=== PATIENT | male | born 1975 | race Caucasian/White ===

== ENCOUNTER 2019-06-09 23:18 | Emergency (ER) | payer OTHER ==
[2019-06-09] MEDS ORDERED: Amoxicillin/Clavulanate K 875-125 MG Tab PO ONE (23:19)
--- NOTE | 2019-06-09 23:44 | EDM.PDOC ---
ED HPI GENERAL MEDICAL PROBLEM - General Stated Complaint: COLD SORE THROAT Time Seen by Provider: 06/09/19 23:42 Source of Information: Reports: Patient History Limitations: Reports: No Limitations - History of Present Illness INITIAL COMMENTS - FREE TEXT/NARRATIVE: Head pressure x 2 days. Associated with sore that,cough and low grade fever. Insidious onset ,a few days ago. ED ROS GENERAL - Review of Systems Review Of Systems: ROS reveals no pertinent complaints other than HPI. ED EXAM, GENERAL - Physical Exam Exam: See Below Exam Limited By: No Limitations General Appearance: Alert, WD/WN Ears: Normal External Exam Ear Exam: Bilateral Ear: Auricle Normal, Canal Normal, TM normal Nose: Normal Inspection Throat/Mouth: Normal Inspection, Inflammation Head: Atraumatic, Sinus Tenderness Respiratory/Chest: No Respiratory Distress, Lungs Clear, No Accessory Muscle Use Cardiovascular: Normal Peripheral Pulses Departure - Departure Time of Disposition: 23:43 Disposition: Home, Self-Care 01 Condition: Good Clinical Impression: Sinusitis - Discharge Information Referrals: PCP,None [Primary Care Provider] - - Problem List & Annotations (1) Sinusitis SNOMED Code(s): 25612567 Code(s): J32.9 - CHRONIC SINUSITIS, UNSPECIFIED Status: Acute - Problem List Review Problem List Initiated/Reviewed/Updated: Yes - Assessment/Plan Plan: Augmentin 875 mg BID.
== END 2019-06-10 00:05 | disposition home or self-care (01) ==
LOC: FB.ED 23:18
DX: J32.9 Chronic sinusitis, unspecified (principal)
CPT/HCPCS: 99282; A9270

== ENCOUNTER 2019-12-19 20:27 | Emergency (ER) | payer OTHER ==
--- NOTE | 2019-12-19 21:08 | EDM.PDOC ---
ED HPI GENERAL MEDICAL PROBLEM - General Chief Complaint: General Stated Complaint: VOMITING AND DIARRHEA Time Seen by Provider: 12/19/19 20:47 Source of Information: Reports: Patient History Limitations: Reports: No Limitations - History of Present Illness INITIAL COMMENTS - FREE TEXT/NARRATIVE: 44-year-old male who reports 2 days ago began having vomiting and diarrhea and the symptoms were moderate to severe yesterday but today they have been less. He has had vomiting 2 today and diarrhea 4 or 5. He has felt fatigue and somewhat dizzy yesterday but that has improved today he has been able to take liquids today. He has not really been eating that well area has had normal urination without hematuria or dysuria. He thinks he may have had a fever with this and it has been subjective area he has had no sore throat or cough. He does feel improved today but still has malaise. He has some antinausea medication at home that he has been taking today with good results. He denies any pain at present. He rates his pain as a 0/10. There are no other associated signs or symptoms. There are no other modifying factors. 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 below) (Antinausea medication at home) - Related Data Allergies Allergy/AdvReac Type Severity Reaction Status Date / Time No Known Allergies Allergy Verified 12/19/19 22:29 Home Meds: Home Meds amLODIPine Besylate [Norvasc] 10 mg PO BEDTIME 12/19/19 [History] hydroCHLOROthiazide [Hydrochlorothiazide] 0 mg PO BEDTIME 12/19/19 [History] Past Medical History Cardiovascular History: Reports: Hypertension - Past Surgical History HEENT Surgical History: Reports: Tonsillectomy GI Surgical History: Reports: Appendectomy, Other (See Below) (Exploratory laparotomy for volvulus as a child) Musculoskeletal Surgical History: Reports: Other (See Below) Other Musculoskeletal Surgeries/Procedures:: States history of surgery on left hand. Social & Family History - Tobacco Use Smoking Status *Q: Former Smoker Used Tobacco, but Quit: Yes Month/Year Tobacco Last Used: 10/2019 - Alcohol Use Alcohol Use History: No Alcohol Use in Last Twelve Months: No Alcohol Use Comment: No alcohol use for the past 3 years. - Living Situation & Occupation Occupation: Employed (Works at [employer]) ED ROS GENERAL - Review of Systems Review Of Systems: See Below Constitutional: Reports: Fever (Subjective), Malaise, Decreased Appetite HEENT: Reports: No Symptoms Respiratory: Reports: No Symptoms Cardiovascular: Reports: No Symptoms GI/Abdominal: Reports: Diarrhea, Decreased Appetite, Nausea, Vomiting : Reports: No Symptoms Musculoskeletal: Reports: Other (Some body aches) Skin: Reports: No Symptoms Neurological: Reports: No Symptoms Hematologic/Lymphatic: Reports: No Symptoms Immunologic: Reports: No Symptoms ED EXAM, GENERAL - Physical Exam Exam: See Below Exam Limited By: No Limitations General Appearance: Alert, WD/WN, No Apparent Distress Eye Exam: Bilateral Eye: EOMI, Normal Inspection Ears: Normal External Exam, Hearing Grossly Normal Ear Exam: Bilateral Ear: Auricle Normal Nose: Normal Inspection, Normal Mucosa, No Blood Throat/Mouth: Normal Inspection, Normal Oropharynx, Normal Voice, No Airway Compromise, Other (Moist mucous membranes) Head: Atraumatic, Normocephalic Neck: Normal Inspection, Supple, Non-Tender, Full Range of Motion Respiratory/Chest: No Respiratory Distress, Lungs Clear, Normal Breath Sounds, No Accessory Muscle Use, Chest Non-Tender Cardiovascular: Normal Peripheral Pulses, Regular Rate, Rhythm, No Murmur Peripheral Pulses: 2+: Radial (L), Radial (R) GI/Abdominal: Normal Bowel Sounds, Soft, Non-Tender, No Mass Back Exam: Normal Inspection Extremities: Normal Inspection, Normal Range of Motion, Non-Tender, No Pedal Edema, Normal Capillary Refill Neurological: Alert, Oriented, CN II-XII Intact, Normal Cognition, No Motor/ Sensory Deficits Skin Exam: Warm, Dry, Intact, Normal Color, No Rash Course - Vital Signs Last Recorded V/S: Last Vital Signs Temp 36.6 C 12/19/19 21:45 Pulse 84 12/19/19 21:45 Resp 17 12/19/19 21:45 BP 143/83 H 12/19/19 21:45 Pulse Ox 99 12/19/19 21:45 - Re-Assessments/Exams Free Text/Narrative Re-Assessment/Exam: 12/19/19 21:00: Patient is awake, alert and appropriate. He appears nontoxic and does not appear to be dehydrated. His vomiting and diarrhea seem to be resolving and he has antiemetic at home. I do not feel that he needs IV fluids at this time and I do not think that he needs laboratory testing. He should go home and rest. He should continue to drink plenty of fluids and use the antiemetic that he has at home as needed. No work until 12/21/2019. Departure - Departure Time of Disposition: 21:10 Disposition: Home, Self-Care 01 Condition: Good Clinical Impression: Vomiting and diarrhea - Discharge Information Instructions: Nausea and Vomiting, Adult, [id number], Diarrhea, Adult, Easy- to-Read Referrals: PCP,None [Primary Care Provider] - Forms: ED Department Discharge, ED Return to Work/School Form Additional Instructions: Your exam is reassuring. You should rest. You should drink plenty of fluids. Take the medicine that you have at home as needed. You may also take Imodium 1 capsule after each loose stool up to 5 capsules a 24-hour period as needed for diarrhea. No work until 12/21/2019. Back to the emergency department for unrelenting vomiting, abdominal pain, high fever or any other concerning sign or symptom. Sepsis Event Note - Evaluation Sepsis Screening Result: No Definite Risk - Focused Exam Vital Signs: Vital Signs Temp Pulse Resp BP Pulse Ox 12/19/19 21:45 36.6 C 84 17 143/83 H 99 12/19/19 20:27 36.3 C 71 17 124/82 100 Date Exam was Performed: 12/20/19 Time Exam was Performed: 01:42
== END 2019-12-19 21:54 | disposition home or self-care (01) ==
LOC: FB.ED 20:27
CPT/HCPCS: 99283

== ENCOUNTER 2020-01-05 23:14 | Emergency (ER) | payer OTHER ==
[2020-01-05] MEDS ORDERED: Meclizine 25 MG Tab PO ONE (23:27)
[2020-01-05] MEDS ORDERED: Ondansetron 4 MG Tab.DIS PO ONE (23:28)
--- NOTE | 2020-01-05 23:51 | EDM.PDOC ---
ED HPI GENERAL MEDICAL PROBLEM - General Chief Complaint: General Stated Complaint: Dizzy Time Seen by Provider: 01/05/20 23:20 Source of Information: Reports: Patient History Limitations: Reports: No Limitations - History of Present Illness INITIAL COMMENTS - FREE TEXT/NARRATIVE: Patient presented to the ED because of URI s/s x 1 day followed by onset of vertigo . He feels spinning around the room with associated nausea but no vomiting. There is tinnitus in both ears which according to him is chronic. 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 - Related Data Allergies Allergy/AdvReac Type Severity Reaction Status Date / Time cat dander Allergy Unstated Verified 01/06/20 02:28 dog dander Allergy Unstated Verified 01/06/20 02:28 Home Meds: Home Meds amLODIPine Besylate [Norvasc] 10 mg PO BEDTIME 12/19/19 [History] hydroCHLOROthiazide [Hydrochlorothiazide] 0 mg PO BEDTIME 12/19/19 [History] Past Medical History Cardiovascular History: Reports: Hypertension Other Cardiovascular History: States has been on BP medication in the past. - Past Surgical History HEENT Surgical History: Reports: Tonsillectomy GI Surgical History: Reports: Appendectomy, Other (See Below) Other GI Surgeries/Procedures: States he had abdominal surgery around age 1. Musculoskeletal Surgical History: Reports: Other (See Below) Other Musculoskeletal Surgeries/Procedures:: States history of surgery on left hand. Social & Family History - Family History Endocrine/Metabolic: Reports: Other (See Below) Other Endocrine/Metabolic Family History: Patient states both mother and father have diabetes. - Living Situation & Occupation Occupation: Employed (Works at [employer]) ED ROS GENERAL - Review of Systems Review Of Systems: See Below Constitutional: Reports: No Symptoms HEENT: Reports: No Symptoms Respiratory: Reports: No Symptoms Cardiovascular: Reports: No Symptoms Endocrine: Reports: No Symptoms GI/Abdominal: Reports: Nausea. Denies: Vomiting : Reports: No Symptoms Musculoskeletal: Reports: No Symptoms Skin: Reports: No Symptoms Neurological: Reports: Dizziness Psychiatric: Reports: No Symptoms Hematologic/Lymphatic: Reports: No Symptoms ED EXAM, GENERAL - Physical Exam Exam: See Below Exam Limited By: No Limitations General Appearance: Alert Ears: Normal External Exam, Normal Canal, Normal TMs Nose: Normal Inspection, Normal Mucosa, No Blood Throat/Mouth: Normal Inspection, Normal Lips, Normal Teeth, Normal Gums Head: Atraumatic, Normocephalic Neck: Normal Inspection, Supple, Non-Tender, Full Range of Motion Respiratory/Chest: No Respiratory Distress, Lungs Clear, Normal Breath Sounds Cardiovascular: Normal Peripheral Pulses, Regular Rate, Rhythm, No Edema, No Gallop, No JVD, No Murmur GI/Abdominal: Normal Bowel Sounds, Soft, Non-Tender, No Organomegaly Back Exam: Normal Inspection, Full Range of Motion Extremities: Normal Inspection, Normal Range of Motion Course - Vital Signs Text/Narrative:: Zofran ODT 4 mg Meclizine 50 mg po x1 Ativan 1 mg IM x1 Last Recorded V/S: Last Vital Signs Temp 36.4 C 01/05/20 23:15 Pulse 64 01/05/20 23:15 Resp 18 01/05/20 23:15 BP 144/90 H 01/05/20 23:15 Pulse Ox 100 01/05/20 23:15 - Orders/Labs/Meds Meds: Medications Discontinued Medications Generic Name Dose Route Start Last Admin Trade Name Lisa PRN Reason Stop Dose Admin Lorazepam 1 mg 01/05/20 23:53 01/05/20 23:58 Ativan IM 01/05/20 23:54 1 mg ONETIME ONE Administration Meclizine HCl 50 mg 01/05/20 23:27 01/05/20 23:44 Antivert PO 01/05/20 23:28 50 mg ONETIME ONE Administration Ondansetron HCl 4 mg 01/05/20 23:28 01/05/20 23:31 Zofran Odt PO 01/05/20 23:29 4 mg ONETIME ONE Administration Departure - Departure Time of Disposition: 00:15 Disposition: Home, Self-Care 01 Condition: Good Clinical Impression: URI (upper respiratory infection), BPV (benign positional vertigo) - Discharge Information Instructions: Benign Positional Vertigo Referrals: Elisabet Simpson NP [Primary Care Provider] - Forms: ED Department Discharge Additional Instructions: take the meclizine and the anti emetic that your doctor prescribed keep your appointment to be seen by the physical therapist tomorrow Sepsis Event Note - Evaluation Sepsis Screening Result: No Definite Risk - Focused Exam Vital Signs: Vital Signs Temp Pulse Resp BP Pulse Ox 01/05/20 23:15 36.4 C 64 18 144/90 H 100 Date Exam was Performed: 01/06/20 Time Exam was Performed: 07:40
[2020-01-05] MEDS ORDERED: LORazepam 2 MG/ML SDV IM ONE (23:53)
== END 2020-01-06 00:55 | disposition home or self-care (01) ==
LOC: FB.ED 23:14
DX: H81.10 Benign paroxysmal vertigo, unspecified ear (principal); J06.9 Acute upper respiratory infection, unspecified; Z91.09 Other allergy status, other than to drugs and biological substances; I10 Essential (primary) hypertension; Z79.899 Other long term (current) drug therapy
CPT/HCPCS: 96372; 99283; A9270; J2060

== ENCOUNTER 2020-08-15 18:01 | Emergency (ER) | payer OTHER ==
--- NOTE | 2020-08-15 18:58 | EDM.PDOC ---
ED HPI GENERAL MEDICAL PROBLEM - General Chief Complaint: Gastrointestinal Problem Stated Complaint: STOMACH, DIARRHEA Time Seen by Provider: 08/15/20 18:40 Source of Information: Reports: Patient History Limitations: Reports: No Limitations - History of Present Illness INITIAL COMMENTS - FREE TEXT/NARRATIVE: states he developed diarrhea early this am about 5-6 times , getting better since this evening . has no fever , has no vomiting though felt nauseated. Thinks he ate some food that did not agree with him , Unsure of COVID exposure. will not be able to go to work tonight - Related Data Allergies Allergy/AdvReac Type Severity Reaction Status Date / Time cat dander Allergy Unstated Verified 01/06/20 02:28 dog dander Allergy Unstated Verified 01/06/20 02:28 Home Meds: Home Meds amLODIPine Besylate [Norvasc] 10 mg PO BEDTIME 12/19/19 [History] hydroCHLOROthiazide [Hydrochlorothiazide] 0 mg PO BEDTIME 12/19/19 [History] Past Medical History Cardiovascular History: Reports: Hypertension Other Cardiovascular History: States has been on BP medication in the past. - Past Surgical History HEENT Surgical History: Reports: Tonsillectomy GI Surgical History: Reports: Appendectomy, Other (See Below) Other GI Surgeries/Procedures: States he had abdominal surgery around age 1. Musculoskeletal Surgical History: Reports: Other (See Below) Other Musculoskeletal Surgeries/Procedures:: States history of surgery on left hand. Social & Family History - Family History Endocrine/Metabolic: Reports: Other (See Below) Other Endocrine/Metabolic Family History: Patient states both mother and father have diabetes. - Living Situation & Occupation Occupation: Employed (Works at [employer]) ED ROS GENERAL - Review of Systems Review Of Systems: See Below Constitutional: Reports: No Symptoms HEENT: Reports: No Symptoms Respiratory: Reports: No Symptoms Cardiovascular: Reports: No Symptoms Endocrine: Reports: No Symptoms GI/Abdominal: Reports: Diarrhea, Decreased Appetite, Nausea. Denies: Abdominal Pain, Bloody Stool, Mucous in Stool, Vomiting : Reports: No Symptoms Musculoskeletal: Reports: No Symptoms Skin: Reports: No Symptoms Neurological: Reports: No Symptoms Psychiatric: Reports: No Symptoms Hematologic/Lymphatic: Reports: No Symptoms ED EXAM, GI/ABD - Physical Exam Exam: See Below Exam Limited By: No Limitations General Appearance: Alert, WD/WN, No Apparent Distress Eyes: Bilateral: EOMI Ears: Normal External Exam Nose: Normal Inspection Throat/Mouth: Normal Inspection, Normal Oropharynx Neck: Supple, Non-Tender Respiratory/Chest: Lungs Clear GI/Abdominal Exam: Normal Bowel Sounds, Soft, Non-Tender Back Exam: Full Range of Motion Extremities: Normal Inspection, Normal Range of Motion Neurological: Alert, Oriented, CN II-XII Intact Psychiatric: Normal Affect Departure - Departure Time of Disposition: 19:10 Disposition: Home, Self-Care 01 Clinical Impression: Gastroenteritis, Gastroenteritis - Discharge Information *PRESCRIPTION DRUG MONITORING PROGRAM REVIEWED*: Not Applicable *COPY OF PRESCRIPTION DRUG MONITORING REPORT IN PATIENT KELLE: Not Applicable Instructions: Viral Gastroenteritis, Adult, [id number], Diarrhea, Adult, [id number], Food Poisoning, [id number] Referrals: Elisabet Simpson NP [Primary Care Provider] - Forms: ED Department Discharge, ED Return to Work/School Form
== END 2020-08-15 19:20 | disposition home or self-care (01) ==
LOC: FB.ED 18:01
DX: K52.9 Noninfective gastroenteritis and colitis, unspecified (principal); I10 Essential (primary) hypertension; Z91.09 Other allergy status, other than to drugs and biological substances; Z79.899 Other long term (current) drug therapy; Z90.49 Acquired absence of other specified parts of digestive tract
CPT/HCPCS: 99283

== ENCOUNTER 2020-08-23 18:20 | Emergency (ER) | payer OTHER ==
[2020-08-23] MEDS ORDERED: Sodium Chloride 0.9% 10 ML Syringe FLUSH PRN (18:33)
[2020-08-23] MEDS ORDERED: Sodium Chloride 0.9% 1,000 ML IV ONE (18:38)
[2020-08-23] MEDS ORDERED: Sodium Chloride 0.9% 1,000 ML IV SCH (18:45)
[2020-08-23] MEDS ORDERED: Iopamidol 755 Mg/ML 100 ML Bottle IV ONE (19:09)
[2020-08-23] MEDS ORDERED: Morphine 4 MG/ML VIAL IVPUSH ONE (19:31)
[2020-08-23] MEDS ORDERED: Ondansetron 4 MG/2 ML SDV IVPUSH ONE (19:31)
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
[2020-08-23] MEDS: Diphtheria,Pertussis(Acell),Tetanus Vaccine 0.5 ML Syringe IM ONE ×2 (22:24→22:46)
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
--- NOTE | 2020-08-23 22:47 | CR ---
BILATERAL KNEES Frontal and lateral views of the knees were obtained 08/23/2020--no comparison. Mild hypertrophic degenerative changes are noted at the medial intercondylar spines and laterally off the tibia bilaterally. The medial femorotibial joint space on the left is slightly narrowed with femorotibial joint spaces otherwise fairly well maintained. A definite acute fracture or dislocation was not identified. IMPRESSION: No acute fracture or dislocation. Report was called to Dr. Chávez at 2043 hours. [facility]
== END 2020-08-23 21:30 | disposition home or self-care (01) ==
LOC: FB.ED 18:20
DX: S06.0X1A Concussion with loss of consciousness of 30 minutes or less, initial encounter (principal); S80.01XA Contusion of right knee, initial encounter; S80.11XA Contusion of right lower leg, initial encounter; S80.02XA Contusion of left knee, initial encounter; S00.93XA Contusion of unspecified part of head, initial encounter; S30.810A Abrasion of lower back and pelvis, initial encounter; F10.120 Alcohol abuse with intoxication, uncomplicated; I10 Essential (primary) hypertension; Z23 Encounter for immunization; Z91.09 Other allergy status, other than to drugs and biological substances; Z90.49 Acquired absence of other specified parts of digestive tract; Z79.899 Other long term (current) drug therapy; V89.2XXA Person injured in unspecified motor-vehicle accident, traffic, initial encounter
CPT/HCPCS: 36415; 70450; 71045; 71260; 72125; 72128; 72131; 73560; 73590; 74177; 80053; 80307; 81001; 83690; 83735; 84484; 85025; 90471; 90715; 93005; 96374; 96375; 99284; J2270; J2405; J7030; Q9967; 93010

== ENCOUNTER 2021-09-12 03:24 | Emergency (ER) | payer BC, MEDICAID, OTHER ==
--- NOTE | 2021-09-12 04:06 | EDM.PDOC ---
ED HPI GENERAL MEDICAL PROBLEM - General Stated Complaint: VOMITING Time Seen by Provider: 09/12/21 04:03 Source of Information: Reports: Patient History Limitations: Reports: No Limitations - History of Present Illness INITIAL COMMENTS - FREE TEXT/NARRATIVE: pt c/o epigastric burning sensation with reflex sx since yesterday, describe Hx of recurrent similar problems like this X 2 years denies emesis or diarrhea, had BM yesterday , no fever chills or any other associated sx or concerns. - Related Data Allergies Allergy/AdvReac Type Severity Reaction Status Date / Time cat dander Allergy Unstated Verified 09/12/21 04:33 dog dander Allergy Unstated Verified 09/12/21 04:33 Home Meds: Home Meds amLODIPine Besylate [Norvasc] 10 mg PO BEDTIME 12/19/19 [History] hydroCHLOROthiazide [Hydrochlorothiazide] 0 mg PO BEDTIME 12/19/19 [History] Esomeprazole Magnesium [Nexium 24Hr] 20 mg PO DAILY 09/12/21 [History] Past Medical History - Past Health History Medical/Surgical History: Denies Medical/Surgical History Cardiovascular History: Reports: Hypertension Other Cardiovascular History: States has been on BP medication in the past. - Past Surgical History HEENT Surgical History: Reports: Tonsillectomy GI Surgical History: Reports: Appendectomy, Other (See Below) Other GI Surgeries/Procedures: Pyloromyotomy. Musculoskeletal Surgical History: Reports: Other (See Below) Other Musculoskeletal Surgeries/Procedures:: States history of surgery on left hand. Social & Family History - Family History Family Medical History: No Pertinent Family History Endocrine/Metabolic: Reports: Other (See Below) Other Endocrine/Metabolic Family History: Patient states both mother and father have diabetes. - Caffeine Use Caffeine Use: Reports: Soda - Living Situation & Occupation Occupation: Employed (Works at [employer]) ED ROS GENERAL - Review of Systems Review Of Systems: See Below Constitutional: Reports: No Symptoms HEENT: Reports: No Symptoms Respiratory: Reports: No Symptoms Cardiovascular: Reports: No Symptoms GI/Abdominal: Reports: Abdominal Pain, Nausea. Denies: Black Stool, Bloody Stool, Constipation, Diarrhea, Vomiting : Reports: No Symptoms Musculoskeletal: Reports: No Symptoms Skin: Reports: No Symptoms ED EXAM, GENERAL - Physical Exam Exam: See Below Exam Limited By: No Limitations General Appearance: Alert, Mild Distress Eye Exam: Bilateral Eye: Normal Inspection Nose: Normal Inspection Throat/Mouth: Normal Inspection, Normal Oropharynx Head: Atraumatic Neck: Normal Inspection, Supple Respiratory/Chest: No Respiratory Distress, Lungs Clear Cardiovascular: Normal Peripheral Pulses, Regular Rate, Rhythm GI/Abdominal: Normal Bowel Sounds, Soft, Non-Tender Extremities: Normal Inspection, Normal Range of Motion Neurological: Alert, Oriented, CN II-XII Intact, No Motor/Sensory Deficits Skin Exam: Warm, Dry Course - Vital Signs Text/Narrative:: unremarkable labs except for elevated ETOH and mild elevation with liver enzymes were explained to pt , pt is comfortable after gi cocktail and zofran, abd xray shows no acute findings and abd exam shows no signs of acute abd. pt has GERD/ gastritis , likely triggered by alcohol use , he is to avoid alcohol and spicy food continue with own nexium and follow with PCP in 1 week for re-check. Last Recorded V/S: Last Vital Signs Temp 36.8 C 09/12/21 03:35 Pulse 75 09/12/21 03:35 Resp 16 09/12/21 03:35 BP 140/91 H 09/12/21 03:35 Pulse Ox 97 09/12/21 03:35 - Orders/Labs/Meds Orders: Active Orders 24 hr Category Date Time Status Abdomen 2V AP Flat Upright [CR] Stat Exams 09/12/21 04:09 Ordered UA W/MICROSCOPIC [URIN] Stat Lab 09/12/21 04:00 Received Alum Hydroxide/Mag Hydroxide [Mag-Al Susp] 30 ml Med 09/12/21 04:57 Ordered Lidocaine 2% [Xylocaine 2% Viscous] 30 ml PO ONETIME Labs: Laboratory Tests 09/12/21 09/12/21 09/12/21 Range/Units 04:20 04:20 04:20 WBC 5.3 (3.2-10.1) x10-3/uL RBC 5.26 (3.90-5.90) x10(6)uL Hgb 15.9 (12.9-17.7) g/dL Hct 46.1 (38.3-50.1) % MCV 87.8 (80.8-98.7) fL MCH 30.2 (27.0-33.3) pg MCHC 34.4 (28.7-35.3) g/dL RDW 13.3 (12.4-15.0) % Plt Count 267 (117-477) x10(3)uL MPV 7.5 (6.7-11.0) fL Neut % (Auto) 54.5 (40.3-71.8) % Lymph % (Auto) 33.7 (15.8-45.3) % [place] % (Auto) 7.9 (5.5-15.2) % Eos % (Auto) 2.8 (0.1-6.8) % Baso % (Auto) 1.1 (0.3-3.8) % Neut # (Auto) 2.9 (1.7-6.9) x10-3/uL Lymph # (Auto) 1.8 (0.5-4.5) x10-3/uL [place] # (Auto) 0.4 (0.0-1.2) x10-3/uL Eos # (Auto) 0.1 (0.0-0.6) x10-3/uL Baso # (Auto) 0.1 (0.0-0.3) x10-3/uL Sodium 141 (135-145) mmol/L Potassium 3.4 L (3.5-5.3) mmol/L Chloride 104 (100-110) mmol/L Carbon Dioxide 24 (21-32) mmol/L BUN 8 (7-18) mg/dL Creatinine 1.0 (0.70-1.30) mg/dL Est Cr Clr Drug Dosing 76.47 mL/min Estimated GFR (MDRD) > 60 (>60) BUN/Creatinine Ratio 8.0 L (9-20) Glucose 99 (80-116) mg/dL Calcium 8.7 (8.6-10.2) mg/dL Total Bilirubin 0.8 (0.1-1.3) mg/dL AST 38 H (5-25) IU/L ALT 63 H D (12-36) U/L Alkaline Phosphatase 112 (56-112) IU/L Total Protein 7.8 (6.0-8.0) g/dL Albumin 4.0 (3.5-5.2) g/dL Globulin 3.8 g/dL Albumin/Globulin Ratio 1.1 Amylase 56 (25-115) U/L Lipase 77 (73-393) U/L Ethyl Alcohol 0.09 H (<0.03) % Meds: Medications Discontinued Medications Generic Name Dose Route Start Last Admin Trade Name Lisa PRN Reason Stop Dose Admin Ondansetron HCl 4 mg 09/12/21 04:09 Ondansetron 4 Mg Tab.Dis PO 09/12/21 04:10 ONETIME ONE Departure - Departure Time of Disposition: 05:01 Disposition: Home, Self-Care 01 Clinical Impression: Gastritis - Discharge Information Referrals: Elisabet Simpson NP [Primary Care Provider] - Sepsis Event Note (ED) - Focused Exam Vital Signs: Vital Signs Temp Pulse Resp BP Pulse Ox 09/12/21 03:35 36.8 C 75 16 140/91 H 97 - My Orders Last 24 Hours: My Active Orders 09/12/21 04:00 UA W/MICROSCOPIC [URIN] Stat 09/12/21 04:09 Abdomen 2V AP Flat Upright [CR] Stat 09/12/21 04:57 Alum Hydroxide/Mag Hydroxide [Mag-Al Susp] 30 ml Lidocaine 2% [Xylocaine 2% Viscous] 30 ml PO ONETIME - Assessment/Plan Last 24 Hours: My Active Orders 09/12/21 04:00 UA W/MICROSCOPIC [URIN] Stat 09/12/21 04:09 Abdomen 2V AP Flat Upright [CR] Stat 09/12/21 04:57 Alum Hydroxide/Mag Hydroxide [Mag-Al Susp] 30 ml Lidocaine 2% [Xylocaine 2% Viscous] 30 ml PO ONETIME
[2021-09-12] MEDS ORDERED: Ondansetron 4 MG Tab.DIS PO ONE (04:09)
[2021-09-12] MEDS ORDERED: Alum Hydroxide/Mag Hydroxide 30 ML, Lidocaine 2% 30 ML PO ONE ×2 (04:57)
--- NOTE | 2021-09-12 10:30 | CR ---
INDICATION: Abdominal pain. ABDOMEN, TWO VIEW: Four images of the abdomen in supine and upright projections 09/12/[address] abdomen and pelvis from 08/23/20. A moderate dextroconvex scoliosis is noted at the mid thoracic spine. The pattern of gas and feces is fairly nonspecific without evidence of free air or obstruction. Apparent phlebolith noted in the left pelvis. Postsurgical changes are noted in the right flank. No organomegaly, mass lesions or nonvascular pathologic calcifications were noted. IMPRESSION: Nonacute abdomen. MTDD
== END 2021-09-12 05:10 | disposition home or self-care (01) ==
LOC: FB.ED 03:24
DX: K29.70 Gastritis, unspecified, without bleeding (principal); I10 Essential (primary) hypertension; Z91.048 Other nonmedicinal substance allergy status; Z79.899 Other long term (current) drug therapy
CPT/HCPCS: 36415; 74019; 80053; 80307; 81001; 82150; 83690; 85025; 99284; A9270-GY